=== PATIENT | male | born 1985 | race Caucasian/White ===

== ENCOUNTER 2018-01-20 19:00 | Emergency (ER) | payer MEDICAID ==
[~2018-01-20] VITALS: Ht 182.9 cm; Wt 77.0 kg
[~2018-01-20 19:00] MED LIST: DICY10CA88 PO; DIL100C PO; METO-410 CORPAK; ONDA4TAB59 PO; PROM25SU46 RC
[2018-01-20 19:27] LABS: BASOPHILS % (AUTO) 0.1 % (0-1); EOSINOPHILS # (AUTO) 0.1 X10'3 (0-0.9); EOSINOPHILS % (AUTO) 1.1 % (0-6); HEMATOCRIT 46.9 % (42.0-52.0); HEMOGLOBIN 15.7 g/dl (14.0-17.9); LYMPHOCYTES # (AUTO) 1.1 X10'3 (1.1-4.8); LYMPHOCYTES % (AUTO) 10.5 % (21-51); MEAN CORPUSCULAR HEMOGLOBIN 29.5 PG (27.0-31.0); MEAN CORPUSCULAR HGB CONC 33.4 % (33.0-36.5); MEAN CORPUSCULAR VOLUME 88.2 FL (78-98); MEAN PLATELET VOLUME 7.7 FL (7.4-10.4); MONOCYTES # (AUTO) 0.3 X10'3 (0-0.9); MONOCYTES % (AUTO) 2.6 % (2-12); NEUTROPHILS # (AUTO) 9.3 X10'3 (1.8-7.7); NEUTROPHILS % (AUTO) 85.7 % (42-75); PLATELET COUNT 299 X10'3 (140-440); RED BLOOD COUNT 5.32 X10'6 (4.70-6.10); RED CELL DISTRIBUTION WIDTH 12.7 % (11.5-14.5); WHITE BLOOD COUNT 10.8 X10'3 (4.5-11.0)
[2018-01-20] MEDS ORDERED: normal saline 1000ml 1,000 ML IV ONE (19:30)
[2018-01-20] MEDS ORDERED: ondansetron/PF 4mg/2ml inj IV ONE (19:30)
[2018-01-20 19:40] LABS: PROTHROMBIN TIME 10.5 SECONDS (9.0-12.0)
[2018-01-20 19:42] LABS: ALANINE AMINOTRANSFERASE 29 U/L (12-78); ALBUMIN 4.5 G/DL (3.4-5.0); ALBUMIN/GLOBULIN RATIO 1.2 (1.1-1.5); ALKALINE PHOSPHATASE 87 IU/L (46-116); ANION GAP 9 (8-16); ASPARTATE AMINO TRANSFERASE 25 U/L (10-37); BILIRUBIN,TOTAL 0.4 MG/DL (0.1-1.0); BLOOD UREA NITROGEN 9 MG/DL (7-18); BUN/CREATININE RATIO 9.3 (5.4-32.0); CHLORIDE 104 MMOL/L (99-107); CREATININE 0.97 MG/DL (0.60-1.10); GLUCOSE 114 MG/DL (70-104); POTASSIUM 3.8 MMOL/L (3.5-5.1); SODIUM 141 MMOL/L (135-145); TOTAL PROTEIN 8.3 G/DL (6.4-8.2); eGFR 89 ML/MIN
[2018-01-20] MEDS ORDERED: LORazepam 2 mg/ml vial IV ONE (20:00)
[2018-01-20] MEDS ORDERED: metoclopramide 5 mg/ml inj IV ONE (20:00)
[2018-01-20] MEDS ORDERED: normal saline 1000ML IV soln IVB ONE ×2 (20:00)
[2018-01-20] MEDS ORDERED: diphenhydrAMINE 50 mg/ml inj IV ONE (20:00)
[2018-01-20 20:14] LABS: LIPASE 117 U/L (73-393)
[2018-01-20 20:43] LABS: COLOR,URINE YELLOW (Yellow); GLUCOSE, URINE NEGATIVE (Neg); KETONES,URINE 15 mg/dl (Neg); LEUKOCYTE ESTERASE ,URINE NEGATIVE (Neg); NITRITES, URINE NEGATIVE (Neg); OCCULT BLOOD,URINE NEGATIVE (Neg); PH,URINE 6.5 (4.8-8.0); PROTEIN,URINE 30 mg/dl (Neg); UROBILINOGEN,URINE 0.2 E.U/dL (0.2-1.0)
[2018-01-20 20:50] LABS: CLARITY,URINE SLIGHTLY CLOUDY (Clear); UA COLLECTION TYPE CLN CATCH MIDSTREAM
[2018-01-20 20:53] LABS: WBC,URINE 0-4 /HPF (0-4)
[2018-01-20 20:54] LABS: BACTERIA,URINE FEW /HPF (Neg); HYALINE CASTS 0-3 /LPF (NEGATIVE); MUCUS STRANDS MODERATE /LPF (Neg); RBC,URINE 0-2 /HPF (0-2); SQUAMOUS EPITHELIAL CELL,UR FEW /LPF (FEW)
[2018-01-20] MEDS ORDERED: ONDA4TAB12 PO (21:30)
[2018-01-20 21:35] VITALS: BP 142/86
== END 2018-01-20 21:36 | disposition home or self-care (01) ==
LOC: ER 19:01
DX: R11.2 Nausea with vomiting, unspecified (principal); R10.13 Epigastric pain; G89.29 Other chronic pain; F17.210 Nicotine dependence, cigarettes, uncomplicated; Z86.69 Personal history of other diseases of the nervous system and sense organs; Z88.1 Allergy status to other antibiotic agents; Z79.899 Other long term (current) drug therapy
CPT/HCPCS: 36415; 80053; 81001; 83690; 85025; 85610; 96361; 96374; 96375; 99283; J1200; J2060; J2405; J2765; J7030